=== PATIENT | male | born 1960 | race Caucasian/White ===

== ENCOUNTER → 2016-11-11 | Outpatient (CLI) | payer OTHER ==
[~2016-11-11] MED LIST: 1-ME1LIQ PO; ANTI2TAB PO; MEVA40TA PO; PROT40TA PO; ZOFR4TAB3 PO
[2016-11-11 08:49] LABS: HEMATOCRIT 42.1 % (39.0-51.0); MEAN CELL VOLUME 87.8 FL (80.0-100.0); MEAN CORPUSCULAR HEMOGLOBIN 29.6 PG (27.0-34.0); MEAN CORPUSCULAR HGB CONC 33.7 % (32.0-36.0); PLATELET COUNT 271 TH/MM3 (150-450); RED CELL DISTRIBUTION WIDTH 13.3 % (11.6-17.2); REVIEW FLAG FINAL; WHITE BLOOD COUNT 6.6 TH/MM3 (4.0-11.0)
[2016-11-11 09:18] LABS: ANION GAP 9 MEQ/L (5-15); AST (GOT) 17 U/L (15-37); BICARBONATE 27.2 MEQ/L (21.0-32.0); BLOOD UREA NITROGEN 13 MG/DL (7-18); CHLORIDE 100 MEQ/L (98-107); GLOMERULAR FILTRATION RATE 74 ML/MIN (>89); GLUCOSE,FASTING 91 MG/DL (74-99); POTASSIUM 4.2 MEQ/L (3.5-5.1); SODIUM (NA) 136 MEQ/L (136-145)
[2016-11-11 09:30] LABS: ALKALINE PHOSPHATASE 70 U/L (45-117); ALT (GPT) 30 U/L (12-78); HDL CHOLESTEROL 41.5 MG/DL (40.0-60.0); LDL CHOLESTEROL 93 MG/DL (0-99); TOTAL BILIRUBIN ADULT 0.4 MG/DL (0.2-1.0)
== END ==
LOC: CLAB 08:31
PROVIDERS: ATTEND Family Medicine
DX: R20.2 Paresthesia of skin (principal); E78.00 Pure hypercholesterolemia, unspecified; K21.9 Gastro-esophageal reflux disease without esophagitis; I10 Essential (primary) hypertension; Z12.5 Encounter for screening for malignant neoplasm of prostate
CPT/HCPCS: 36415; 80053; 80061; 84153; 84443; 85027

== ENCOUNTER → 2017-03-20 | Outpatient (CLI) | payer OTHER ==
[2017-03-20 07:48] LABS: HEMATOCRIT 41.4 % (39.0-51.0); MEAN CELL VOLUME 89.5 FL (80.0-100.0); MEAN CORPUSCULAR HEMOGLOBIN 30.5 PG (27.0-34.0); MEAN CORPUSCULAR HGB CONC 34.1 % (32.0-36.0); PLATELET COUNT 266 TH/MM3 (150-450); RED BLOOD COUNT 4.63 MIL/MM3 (4.50-5.90); RED CELL DISTRIBUTION WIDTH 13.4 % (11.6-17.2); REVIEW FLAG FINAL; WHITE BLOOD COUNT 6.9 TH/MM3 (4.0-11.0)
[2017-03-20 08:09] LABS: ANION GAP 8 MEQ/L (5-15); AST (GOT) 15 U/L (15-37); BICARBONATE 25.5 MEQ/L (21.0-32.0); BLOOD UREA NITROGEN 10 MG/DL (7-18); CHLORIDE 101 MEQ/L (98-107); GLOMERULAR FILTRATION RATE 73 ML/MIN (>89); GLUCOSE,FASTING 93 MG/DL (74-99); POTASSIUM 4.1 MEQ/L (3.5-5.1); SODIUM (NA) 134 MEQ/L (136-145)
[2017-03-20 08:10] LABS: ALT (GPT) 25 U/L (12-78)
[2017-03-20 08:20] LABS: ALKALINE PHOSPHATASE 67 U/L (45-117); LDL CHOLESTEROL 79 MG/DL (0-99); TOTAL BILIRUBIN ADULT 0.3 MG/DL (0.2-1.0)
== END ==
LOC: CLAB 07:09
PROVIDERS: ATTEND Family Medicine
DX: R20.2 Paresthesia of skin (principal); E78.00 Pure hypercholesterolemia, unspecified; K21.9 Gastro-esophageal reflux disease without esophagitis; I10 Essential (primary) hypertension
CPT/HCPCS: 36415; 80053; 80061; 84443; 85027

== ENCOUNTER → 2017-09-22 | Outpatient (CLI) | payer OTHER ==
[2017-09-22 08:22] LABS: AUTOMATED NEUTROPHIL # 3.9 TH/MM3 (1.8-7.7); BASOPHIL # 0.1 TH/MM3 (0-0.2); EOSINOPHIL # 0.1 TH/MM3 (0-0.4); HEMATOCRIT 42.5 % (39.0-51.0); HEMOGLOBIN 14.5 GM/DL (13.0-17.0); LYMPH % 32.9 % (9.0-44.0); LYMPHOCYTE # 2.3 TH/MM3 (1.0-4.8); MEAN CELL VOLUME 89.1 FL (80.0-100.0); MEAN CORPUSCULAR HEMOGLOBIN 30.4 PG (27.0-34.0); MEAN CORPUSCULAR HGB CONC 34.1 % (32.0-36.0); MEAN PLATELET VOLUME 8.3 FL (7.0-11.0); MONO % 9.8 % (0.0-8.0); MONOCYTE # 0.7 TH/MM3 (0-0.9); NEUT % 54.3 % (16.0-70.0); PLATELET COUNT 284 TH/MM3 (150-450); RED BLOOD COUNT 4.78 MIL/MM3 (4.50-5.90); RED CELL DISTRIBUTION WIDTH 13.6 % (11.6-17.2); WHITE BLOOD COUNT 7.1 TH/MM3 (4.0-11.0)
[2017-09-22 08:43] LABS: ALBUMIN 4.1 GM/DL (3.4-5.0); AST (GOT) 14 U/L (15-37); BLOOD UREA NITROGEN 12 MG/DL (7-18); CALCIUM 9.2 MG/DL (8.5-10.1); CHLORIDE 101 MEQ/L (98-107); CREATININE 1.06 MG/DL (0.60-1.30); GLOMERULAR FILTRATION RATE 72 ML/MIN (>89); GLUCOSE,FASTING 87 MG/DL (74-99); SODIUM (NA) 135 MEQ/L (136-145)
[2017-09-22 08:44] LABS: CHOLESTEROL 154 MG/DL (120-200); TRIGLYCERIDES 50 MG/DL (42-150)
[2017-09-22 08:55] LABS: ALKALINE PHOSPHATASE 68 U/L (45-117); ALT (GPT) 20 U/L (12-78); CHOLESTEROL/ HDL RATIO 3.71 RATIO; HDL CHOLESTEROL 41.5 MG/DL (40.0-60.0); LDL CHOLESTEROL 103 MG/DL (0-99); TOTAL BILIRUBIN ADULT 0.4 MG/DL (0.2-1.0); TOTAL PROTEIN 7.7 GM/DL (6.4-8.2)
== END ==
LOC: CLAB 07:55
PROVIDERS: ATTEND Family Medicine
DX: E78.5 Hyperlipidemia, unspecified (principal); I10 Essential (primary) hypertension
CPT/HCPCS: 36415; 80053; 80061; 84443; 85025

== ENCOUNTER 2017-10-14 12:22 | Inpatient (IN) | payer OTHER ==
[~2017-10-14] VITALS: Ht 172.7 cm; Wt 115.0 kg
[~2017-10-14 12:22] MED LIST changes: +SODIUM CHLOR 0.9% 1000 ML INJ 1,000 ML IV ONE
[2017-10-14] MEDS ORDERED: IOHEXOL 350 MG/ML 10 ML VIAL (for RAD DIAG) IVCONTRAST ONE (12:23)
--- NOTE | 2017-10-14 12:27 | PD ---
HPI Chief Complaint: Stroke alert Time Seen by Provider: 12:22 Travel History International Travel<30 days: No Contact w/Intl Traveler<30days: No History of Present Illness HPI 57-year-old male patient with history of hypertension, previous TIA, presents to the ER today brought in by coworkers from upstairs, patient is a employee, apparently coworker noticed that he called out her name, and it was the wrong name, was having slurred speech, he states that he has been dizzy and symptoms have been for about an hour. He states that he ate a bun this morning, took Norvasc for his blood pressure this morning. He denies any chest pains, trouble breathing, or other symptoms. He appears somewhat disoriented according to coworker but is able to answer questions appropriately. However, he does seem to have 2 think about answers even to simple questions like his social security number and who the president is. Considering history of TIA, patient states he had similar symptoms with a TIA as well, stroke alert was called for further evaluation and treatment. His blood sugar in the ER is 84. Modifying Factors: None Associated Signs & Symptoms: Disorientation, slurred speech, stroke alert Risk Factors: Previous TIA PFSH Past Medical History Autoimmune Disease: No Cancer: No Cardiovascular Problems: No High Cholesterol: Yes Endocrine: No GERD: Yes Genitourinary: No Hypertension: Yes Immune Disorder: No Musculoskeletal: No Psychiatric: No Reproductive: No Respiratory: No Past Surgical History Eye Surgery: Yes (eye repair cross eye) Social History Alcohol Use: No Tobacco Use: No Substance Use: No Allergies-Medications (Allergen,Severity, Reaction): Coded Allergies: No Known Allergies (Unverified Adverse Reaction, Unknown, 10/14/17) Reported Meds & Prescriptions Reported Meds & Active Scripts Active Reported Norvasc (Amlodipine Besylate) 5 Mg Tab 5 Mg PO DAILY Protonix (Pantoprazole Sodium) 40 Mg Tab 40 Mg PO DAILY Review of Systems ROS Limitations: Altered Mental Status (Mild) Except as stated in HPI: all other systems reviewed are Neg Physical Exam Narrative GENERAL: Well-developed middle-age male patient currently in mild distress. Awake and oriented 3. Slow to answer questions. SKIN: Focused skin assessment warm/dry. HEAD: Atraumatic. Normocephalic. EYES: Pupils equal and round. No scleral icterus. No injection or drainage. ENT: No nasal bleeding or discharge. Mucous membranes pink and moist. NECK: Trachea midline. No JVD. CARDIOVASCULAR: Regular rate and rhythm. No murmur appreciated. RESPIRATORY: No accessory muscle use. Clear to auscultation. Breath sounds equal bilaterally. GASTROINTESTINAL: Abdomen soft, non-tender, nondistended. Hepatic and splenic margins not palpable. MUSCULOSKELETAL: No obvious deformities. No clubbing. No cyanosis. No edema. NEUROLOGICAL: Awake and alert. No obvious cranial nerve deficits. Motor grossly within normal limits. Mildly slurred speech. No pronator drift. Mild aphasia. PSYCHIATRIC: Appropriate mood and affect; insight and judgment normal. Data Data Last Documented VS Vital Signs Date Time Temp Pulse Resp B/P (MAP) Pulse Ox O2 Delivery O2 Flow Rate FiO2 10/14/17 13:04 16 100 Nasal Cannula 2.00 10/14/17 13:03 55 Orders Orders Diet Npo (10/14/17 Lunch) Activity Bed Rest (10/14/17 ) Electrocardiogram (10/14/17 ) I-Stat Profile (10/14/17 12:22) Prothrombin Time / Inr (Pt) (10/14/17 12:22) Act Partial Throm Time (Ptt) (10/14/17 12:22) Complete Blood Count With Diff (10/14/17 12:22) Fibrinogen (10/14/17 12:22) Creatine Kinase (Cpk) (10/14/17 12:22) Troponin I (10/14/17 12:22) Ua Includes Microscopic (10/14/17 12:22) Drug Screen, Random Urine (10/14/17 12:22) Type And Screen (10/14/17 12:22) Ct Brain W/O Iv Contrast(Rout) (10/14/17 ) Chest, Single Ap (10/14/17 ) Cta Brain W Iv Contrast W 3d (10/14/17 12:22) Cta Neck W Iv Contrast W 3d (10/14/17 12:22) Consult Neurology (10/14/17 ) Blood Glucose (10/14/17 12:22) Ecg Monitoring (10/14/17 12:22) Neuro Checks Q2HX12,Q4H (10/14/17 12:22) Nursing Bedside Swallow Assess .ONCE (10/14/17 12:22) Iv Access Insert/Monitor (10/14/17 12:22) NPO (10/14/17 12:22) Oximetry (10/14/17 12:22) Resp Oxygen Nc Stroke (10/14/17 ) Sodium Chlor 0.9% 1000 Ml Inj (Ns 1000 M (10/14/17 12:22) Cath For Specimen (10/14/17 12:22) (Hub Use Only)Inp Phy Cons/Ref (10/14/17 ) Metoclopramide Inj (Reglan Inj) (10/14/17 13:00) Iohexol 350 Inj (Omnipaque 350 Inj) (10/14/17 12:23) Mri Brain W/O Contrast (10/14/17 13:02) Mra Brain W/O Contrast (Cow) (10/14/17 13:02) Mra Carotids W Contrast (10/14/17 13:02) Aspirin Supp (Aspirin Supp) (10/14/17 13:30) Nicardipine Inj (Cardene Inj) (10/14/17 13:30) Admit Order (Ed Use Only) (10/14/17 13:36) Labs Laboratory Tests Test 10/14/17 12:30 White Blood Count 7.2 TH/MM3 Red Blood Count 5.07 MIL/MM3 Hemoglobin 15.2 GM/DL Bedside Hemoglobin 15.6 G/DL Hematocrit 44.5 % Bedside Hematocrit 46.0 % Mean Corpuscular Volume 87.9 FL Mean Corpuscular Hemoglobin 30.0 PG Mean Corpuscular Hemoglobin Concent 34.2 % Red Cell Distribution Width 13.5 % Platelet Count 275 TH/MM3 Mean Platelet Volume 8.3 FL Neutrophils (%) (Auto) 47.2 % Lymphocytes (%) (Auto) 41.9 % Monocytes (%) (Auto) 8.7 % Eosinophils (%) (Auto) 1.2 % Basophils (%) (Auto) 1.0 % Neutrophils # (Auto) 3.4 TH/MM3 Lymphocytes # (Auto) 3.0 TH/MM3 Monocytes # (Auto) 0.6 TH/MM3 Eosinophils # (Auto) 0.1 TH/MM3 Basophils # (Auto) 0.1 TH/MM3 CBC Comment DIFF FINAL Differential Comment Prothrombin Time 10.0 SEC Prothromb Time International Ratio 1.0 RATIO Activated Partial Thromboplast Time 24.7 SEC Fibrinogen 314 mg/dL Bedside Sodium 137 MMOL/L Bedside Potassium 3.8 MMOL/L Bedside Chloride 98 MMOL/L Bedside Blood Urea Nitrogen 9 MG/DL Bedside Creatinine 1.0 MG/DL Bedside Glucose 96 MG/DL Total Creatine Kinase 122 U/L Troponin I LESS THAN 0.02 NG/ML MDM Medical Screen Exam Complete: Yes Emergency Medical Condition: Yes Medical Record Reviewed: Yes Differential Diagnosis CVA versus ICH versus dehydration versus electrolyte abnormalities versus vertigo Narrative Course Case was discussed with Dr. Villa, initial CT was negative. CTA was attempted but the patient started vomiting on CT machine and only a partial scan could be done. And I have discussed this issue with Dr. Villa as well, she wanted us to do an MRI/MRA for further evaluation. She states that I can go ahead and give the patient aspirin NE. At this point also we did not think that this patient will be a TPA candidate especially because his symptoms are so mild. He is completely conversant currently and is barely confused in the ER. He has no focal numbness or weakness. At this point, patient's blood pressure is fairly elevated and I have talked to Dr. Holcomb for admission, but considering the stroke, we will hold off on blood pressure medications right now, will see what the next blood pressure is before deciding to treat. I have discussed findings with patient and he states understanding. Aggregate critical care time was 30 minutes. Time to perform other separately billable procedures was not included in the critical care time. My time did not include minutes spent treating any other patients simultaneously or on activities that did not directly contribute to the patient's treatment. The services I provided to this patient were to treat and/or prevent clinically significant deterioration that could result in: Stroke alert, ICH, I provided critical care services requiring my management, as noted below: Chart data review, documentation time, medication orders and management, vital sign assessments/reviewing monitor data, ordering and reviewing lab tests, ordering and interpreting/reviewing x-rays and diagnostic studies, care of the patient and discussion of the patient with the admitting physicians. Stroke Alert NIHSS NIH Stroke Scale Result: 1 NIHSS Time Completed: 12:20 Thrombolytic Delayed Delay > 60 Mins From Arrival: Diagnostic Evaluation (CTA was not able to be done, vomiting, MRI done), Uncontrolled Hypertension Diagnosis Diagnosis: Primary Impression: Stroke Additional Impression: Severe uncontrolled hypertension Admitting Physician Requests: Admit Rick Inman MD October 14, 2017 12:27
[2017-10-14 12:43] LABS: AUTOMATED NEUTROPHIL # 3.4 TH/MM3 (1.8-7.7); BASOPHIL # 0.1 TH/MM3 (0-0.2); EOSINOPHIL # 0.1 TH/MM3 (0-0.4); EOSINOPHIL % 1.2 % (0.0-4.0); HEMATOCRIT 44.5 % (39.0-51.0); HEMOGLOBIN 15.2 GM/DL (13.0-17.0); LYMPH % 41.9 % (9.0-44.0); MEAN CELL VOLUME 87.9 FL (80.0-100.0); MEAN CORPUSCULAR HGB CONC 34.2 % (32.0-36.0); MEAN PLATELET VOLUME 8.3 FL (7.0-11.0); MONO % 8.7 % (0.0-8.0); MONOCYTE # 0.6 TH/MM3 (0-0.9); NEUT % 47.2 % (16.0-70.0); PLATELET COUNT 275 TH/MM3 (150-450); RED BLOOD COUNT 5.07 MIL/MM3 (4.50-5.90); RED CELL DISTRIBUTION WIDTH 13.5 % (11.6-17.2); WHITE BLOOD COUNT 7.2 TH/MM3 (4.0-11.0)
--- NOTE | 2017-10-14 12:50 | RADRPT ---
EXAM DATE: 10/14/2017 12:39 PM EDT AGE/SEX: 57 years / Male INDICATIONS: Stroke alert, slurred speach CLINICAL DATA: This is the patient's initial encounter. Patient reports that signs and symptoms have been present for 1 day and indicates a pain score of 0/10. MEDICAL/SURGICAL HISTORY: Non-responsive. Non-responsive. RADIATION DOSE: 45.49 CTDI (mGy) COMPARISON: No prior [facility] exams available for comparison. Report was called by Dr. Fany Fiore at 12:46 PM.] TECHNIQUE: CT of the head without contrast. Using automated exposure control and adjustment of the mA and/or kV according to patient size, radiation dose was kept as low as reasonably achievable to ob tain optimal diagnostic quality images. FINDINGS: Cerebrum: The ventricles are normal for age. No evidence of midline shift, mass lesion, hemorrhage o r acute infarction. No extraaxial fluid collections are seen. Posterior Fossa: The cerebellum and brainstem are intact. The 4th ventricle is midline. The cerebe llopontine angle is unremarkable. Extracranial: The visualized portion of the orbits is intact. Minimal mucoperiosteal thickening in t he right maxillary sinus. Skull: The calvaria is intact. No evidence of skull fracture. CONCLUSION: 1. No acute intracranial abnormality. 2. Minimal right maxillary sinus disease. Electronically signed by: Vidal Arambula MD 10/14/2017 12:48 PM EDT
[2017-10-14] MEDS ORDERED: METOCLOPRAMIDE HCL 10 MG/2 ML VIAL IV PUSH ONE (13:00)
[2017-10-14] MEDS ORDERED: PROT40TA PO (13:01)
[2017-10-14] MEDS ORDERED: AMLO5 PO (13:01)
[2017-10-14 13:03] VITALS: BP 215/96; PULSE 55; RESP 18; O2SAT 100
[2017-10-14 13:04] VITALS: RESP 16; O2SAT 100
[2017-10-14 13:12] LABS: TROPONIN I LESS THAN 0.02 NG/ML (0.02-0.05)
[2017-10-14] MEDS ORDERED: ASPIRIN 300 MG SUPP RECTAL ONE (13:30)
[2017-10-14] MEDS ORDERED: niCARdipine INJ 25 MG in SODIUM CHLOR 0.9% 250 ML INJ 250 ML IV ONE (13:30)
--- NOTE | 2017-10-14 13:36 | RADRPT ---
EXAM DATE: 10/14/2017 1:31 PM EDT AGE/SEX: 57 years / Male INDICATIONS: Stroke alert. Shortness of breath, dizziness, and nausea. CLINICAL DATA: This is the patient's initial encounter. Patient reports that signs and symptoms have been present for 1 day and indicates a pain score of 0/10. MEDICAL/SURGICAL HISTORY: None. None. COMPARISON: No prior [place] exams available for comparison. FINDINGS: A single AP view of the chest demonstrates the lungs to be symmetrically aerated without evidence of mass, infiltrate or effusion. The cardiomediastinal contours are unremarkable. Osseous structures a re intact. CONCLUSION: No evidence of acute cardiopulmonary process. Electronically signed by: Cuco Munroe MD 10/14/2017 1:35 PM EDT
[2017-10-14] MEDS: SODIUM CHLOR 0.9% 1000 ML INJ 1,000 ML IV SCH (13:51)
--- NOTE | 2017-10-14 13:59 | HHI.HP ---
HPI Service [facility] Primary Care Physician Unknown Admission Diagnosis Stroke alert Diagnoses: Chief Complaint: Stroke alert Travel History International Travel<30 Days: No Contact w/Intl Traveler <30 Da: No Traveled to Known Affected Are: No History of Present Illness This is a 57-year-old male with history of hypertension, GERD and previous history of TIA. He was brought in to the ED by his coworkers emergently. He is a hospital employee. Reportedly he was disoriented calling his coworker different name and dysarthric. He also reports of dizziness and nausea for about an hour prior to onset of neuro deficits. Denies fever, chills, numbness and focal weakness. In the emergency department, his symptoms continued to improve but developed vomiting and now reports of left-sided headache. His blood pressure was severely elevated systolic over 215 improved to systolic of 120 without intervention. Patient has been compliant with his medical therapy of Norvasc and Protonix. He is not on antiplatelets and statins. Telemetry shows sinus bradycardia in the 50s which is his baseline. EKG showing sinus bradycardia with ST changes in the 3 and aVF. Patient seen with his family. His reports that he has been under a lot of stress complaining of intermittent chest pain last episode a month ago. All other systems reviewed negative Review of Systems Except as stated in HPI: all other systems reviewed are Neg Past Family Social History Past Medical History As previously mentioned Past Surgical History Eye surgery Reported Medications Reported Meds & Active Scripts Active Reported Norvasc (Amlodipine Besylate) 5 Mg Tab 5 Mg PO DAILY Protonix (Pantoprazole Sodium) 40 Mg Tab 40 Mg PO DAILY Allergies: Coded Allergies: No Known Allergies (Unverified Allergy, Unknown, 10/14/17) Family History No CVA Social History He drinks but does not smoke or use illicit drugs. Lives with his Physical Exam Vital Signs Vital Signs Date Time Temp Pulse Resp B/P (MAP) Pulse Ox O2 Delivery O2 Flow Rate FiO2 10/14/17 13:04 16 100 Nasal Cannula 2.00 10/14/17 13:03 55 18 215/96 (135) 100 Nasal Cannula 2.00 Physical Exam GENERAL: This is a well-nourished, well-developed patient, in no apparent distress. SKIN: No rashes, ecchymoses or lesions. Cool and dry. HEAD: Atraumatic. Normocephalic. No temporal or scalp tenderness. EYES: Pupils equal round and reactive. Extraocular motions intact. No scleral icterus. No injection or drainage. ENT: Nose without bleeding, purulent drainage or septal hematoma. Throat without erythema, tonsillar hypertrophy or exudate. Uvula midline. Airway patent. NECK: Trachea midline. No JVD or lymphadenopathy. Supple, nontender, no meningeal signs. CARDIOVASCULAR: Regular rate and rhythm without murmurs, gallops, or rubs. RESPIRATORY: Clear to auscultation. Breath sounds equal bilaterally. No wheezes , rales, or rhonchi. GASTROINTESTINAL: Abdomen soft, non-tender, nondistended. No guarding. MUSCULOSKELETAL: Extremities without clubbing, cyanosis, or edema. No joint tenderness, effusion, or edema noted. No calf tenderness. Negative Homans sign bilaterally. NEUROLOGICAL: Awake and alert. Cranial nerves II through XII intact. Motor and sensory grossly within normal limits. Five out of 5 muscle strength in all muscle groups. Normal speech. Laboratory Laboratory Tests Test 10/14/17 12:30 White Blood Count 7.2 Red Blood Count 5.07 Hemoglobin 15.2 Bedside Hemoglobin 15.6 Hematocrit 44.5 Bedside Hematocrit 46.0 Mean Corpuscular Volume 87.9 Mean Corpuscular Hemoglobin 30.0 Mean Corpuscular Hemoglobin Concent 34.2 Red Cell Distribution Width 13.5 Platelet Count 275 Mean Platelet Volume 8.3 Neutrophils (%) (Auto) 47.2 Lymphocytes (%) (Auto) 41.9 Monocytes (%) (Auto) 8.7 Eosinophils (%) (Auto) 1.2 Basophils (%) (Auto) 1.0 Neutrophils # (Auto) 3.4 Lymphocytes # (Auto) 3.0 Monocytes # (Auto) 0.6 Eosinophils # (Auto) 0.1 Basophils # (Auto) 0.1 CBC Comment DIFF FINAL Differential Comment Prothrombin Time 10.0 Prothromb Time International Ratio 1.0 Activated Partial Thromboplast Time 24.7 Fibrinogen 314 Bedside Sodium 137 Bedside Potassium 3.8 Bedside Chloride 98 Bedside Blood Urea Nitrogen 9 Bedside Creatinine 1.0 Bedside Glucose 96 Total Creatine Kinase 122 Troponin I LESS THAN 0.02 Result Diagram: 10/14/17 1230 Imaging Last Impressions Head Magnetic Resonance Angiography 10/14/17 1302 Signed Impressions: CONCLUSION: Brain MRI 10/14/17 1302 Signed Impressions: CONCLUSION: Head CT 10/14/17 0000 Signed Impressions: CONCLUSION: Chest X-Ray 10/14/17 0000 Signed Impressions: CONCLUSION: Caprini VTE Risk Assessment Caprini VTE Risk Assessment: Mod/High Risk (score >= 2) Caprini Risk Assessment Model Point Value = 1 Point Value = 2 Point Value = 3 Point Value = 5 Age 41-60 Minor surgery BMI > 25 kg/m2 Swollen legs Varicose veins or History of unexplained or recurrent spontaneous Oral contraceptives or hormone replacement Sepsis (< 1 month) Serious lung disease, including pneumonia (< 1 month) Abnormal pulmonary function Acute myocardial infarction Congestive heart failure (< 1 month) History of inflammatory bowel disease Medical patient at bed rest Age 61-74 Arthroscopic surgery Major open surgery (> 45 min) Laparoscopic surgery (> 45 min) Malignancy Confined to bed (> 72 hours) Immobilizing plaster cast Central venous access Age >= 75 History of VTE Family history of VTE Factor V Leiden Prothrombin [id number] Lupus anticoagulant Anticardiolipin antibodies Elevated serum homocysteine Heparin-induced thrombocytopenia Other congenital or acquired thrombophilia Stroke (< 1 month) Elective arthroplasty Hip, pelvis, or leg fracture Acute spinal cord injury (< 1 month) Prophylaxis Regimen Total Risk Factor Score Risk Level Prophylaxis Regimen 0-1 Low Early ambulation 2 Moderate Order ONE of the following: *Sequential Compression Device (SCD) *Heparin 5000 units SQ BID 3-4 Higher Order ONE of the following medications: *Heparin 5000 units SQ TID *Enoxaparin/Lovenox 40 mg SQ daily (WT < 150 kg, CrCl > 30 mL/min) *Enoxaparin/Lovenox 30 mg SQ daily (WT < 150 kg, CrCl > 10-29 mL/min) *Enoxaparin/Lovenox 30 mg SQ BID (WT < 150 kg, CrCl > 30 mL/min) AND/OR *Sequential Compression Device (SCD) 5 or more Highest Order ONE of the following medications: *Heparin 5000 units SQ TID (Preferred with Epidurals) *Enoxaparin/Lovenox 40 mg SQ daily (WT < 150 kg, CrCl > 30 mL/min) *Enoxaparin/Lovenox 30 mg SQ daily (WT < 150 kg, CrCl > 10-29 mL/min) *Enoxaparin/Lovenox 30 mg SQ BID (WT < 150 kg, CrCl > 30 mL/min) AND *Sequential Compression Device (SCD) Assessment and Plan Problem List: (1) Severe uncontrolled hypertension ICD Code: I10 - Essential (primary) hypertension Status: Acute (2) Stroke ICD Code: I63.9 - Cerebral infarction, unspecified Status: Acute Assessment and Plan This is a 57-year-old male with history of hypertension, GERD and previous history of TIA. He was brought in to the emergency room by his coworkers from upstairs. He is a hospital employee. Reportedly he was disoriented calling his coworker different name and dysarthric. He also reports of dizziness and nausea for about an hour prior to onset of neuro deficits. TIA vs CVA. Patient will be admitted for stroke workup which will include MRI and MRA of the brain, carotid sonogram, echocardiogram and monitor patient on telemetry. Consult neurology, PT, OT and ST. Discussed with Dr. Villa, start aspirin per rectum if he does not pass swallowing evaluation. Permissive hypertension start IV hydration. Risk factor modification obtain lipid profile and A1c Severe HTN. Permissive hypertension as previously mentioned. Will treat with as needed Vasotec, labetalol and Cardene drip if BP over 220/120 Anxiety. Will continue to monitor. Antianxiety medications if okay with neurology DVT prophylaxis with SCD. Pharmacological prophylaxis if okay with neurology Discussed Condition With Patient and family. Patient will be admitted monitor in the ICU for close monitoring of his neurological status. High likelihood to require intravenous antihypertensives Clint Holcomb MD October 14, 2017 13:59
[2017-10-14] MEDS ORDERED: ENALAPRILAT 1.25 MG/ML VIAL IV PUSH PRN (14:00)
[2017-10-14] MEDS ORDERED: LACTULOSE SYRUP 20 GM/30 ML CUP PO PRN (14:00)
[2017-10-14] MEDS ORDERED: LABETALOL HCL 100 MG/20 ML VIAL IV PUSH PRN (14:00)
[2017-10-14] MEDS ORDERED: BISACODYL 10 MG SUPP RECTAL PRN (14:00)
[2017-10-14] MEDS ORDERED: niCARdipine INJ 25 MG in SODIUM CHLOR 0.9% 250 ML INJ 250 ML IV PRN (14:00)
[2017-10-14] MEDS ORDERED: SENNOSIDES 8.6 MG TAB PO PRN (14:00)
[2017-10-14] MEDS ORDERED: NALOXONE HCL 0.4 MG/ML AMP IV PUSH PRN (14:00)
[2017-10-14] MEDS ORDERED: ACETAMINOPHEN 325 MG TAB PO PRN ×2 (14:00)
[2017-10-14] MEDS ORDERED: ONDANSETRON HCL 4 MG/2 ML VIAL IVP PRN (14:00)
[2017-10-14] MEDS ORDERED: GLUCAGON 1 MG/ML VIAL OTHER PRN (14:00)
[2017-10-14] MEDS ORDERED: SODIUM CHLORIDE 0.9% FLUSH 10 ML FLUSH IV FLUSH PRN (14:00)
[2017-10-14] MEDS ORDERED: DEXTROSE 50% IN WATER 50 ML VIAL(D50) IV PUSH PRN (14:00)
[2017-10-14] MEDS ORDERED: MAGNESIUM HYDROXIDE SUSP 30 ML CUP PO PRN (14:00)
--- NOTE | 2017-10-14 14:35 | MB ---
cc: Ya Villa MD DATE: 10/14/2017 REASON FOR CONSULTATION: Stroke alert. 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 The dizziness actually started before the slurred speech, an hour prior or so and was brought into the ED as a stroke alert. He has a history of prior TIA possible in 2011, hypertension. His primary care doctor is Dr. Novak. He actually takes his Norvasc in the morning, had breakfast. He was reported to be somewhat confused, slow to respond, slurred. His blood sugar was 84. He was given some medicine for his accelerated hypertension. He went down for a CAT scan that did not show anything acute. CT angio was initiated; however, from the dye he became severely nauseated and threw up. He is now going to go down for an MRI brain and cahto of Stoll MRA. He is feeling better, still has a mild headache, but his speech has improved. He does not have any focal deficits currently. Hence, TPA is not indicated at this point in time. ALLERGIES TO MEDICATIONS: None reported. ACTIVE MEDICATIONS: 1. Loperamide p.r.n. 2. Zofran p.r.n. 3. Lovastatin 40 mg daily. 4. Amlodipine 10 mg. 5. Protonix 40 mg. PHYSICAL EXAMINATION: VITAL SIGNS: Temperature not checked, but the pulse is in the low 50s, respiratory rate 16; blood pressure initially was 215/96, now down to in the 120 systolic range. NECK: Supple. HEART: Regular. NEUROLOGIC: Awake and alert, fluent, oriented. Pupils reactive. Visual rocha full. Face is symmetrical. Tongue midline. Motor: There is no drift or leg lag. Strength is symmetrical. Toes: Left is downgoing, the right is neutral. DTRs are 1+. Sensory is normal. Cerebellar testing was normal. Gait is withheld. DIAGNOSTIC STUDIES: CBC normal. Coag panel normal. Chemistries: Chloride 98. Troponin less than 0.02. Chest x-ray was also performed without any acute process. IMPRESSION: 1. A 57-year-old man with what appears to be transient ischemic attack symptoms. 2. Hypertension. 3. Dizziness/vertigo may be due to #1. PLAN: Recommend full stroke workup. He will have his MRI. He just went down for the MRA. We will do a carotid ultrasound, a 2-D echo, get a lipid panel and start him on a baby aspirin. Permissible hypertension. At this point, I would not lower his systolic more than 140 systolic range; however, if his blood pressure becomes severely increased, then nicardipine drip would be fine. He can stay in the ICU overnight, just for close monitoring. Continue current care. Further recommendations will be made accordingly. If he is stable tomorrow and images are unremarkable, certainly get him out of bed, have PT assess him. MD MELVIN Marsh/AMBER , 02:02 PM , 02:33 PM
--- NOTE | 2017-10-14 14:36 | RADRPT ---
EXAM DATE: 10/14/2017 2:30 PM EDT AGE/SEX: 57 years / Male INDICATIONS: Stroke alert. CLINICAL DATA: This is the patient's initial encounter. Patient reports that signs and symptoms have been present for 1 day and indicates a pain score of 0/10. MEDICAL/SURGICAL HISTORY: Hypertension. . eye surgery as child. COMPARISON: [facility] [place]/O CONTRAST, 08/19/2011. . TECHNIQUE: 3D [id number] MRA was performed. Source images, multiplanar STS MIP, and 3D volum e MIP reconstructions were reviewed. FINDINGS: There is excellent visualization of the major intracranial arteries out to the second-order branch ve ssels. There is no evidence for aneurysm, vessel truncation or stenosis, and no evidence for vascula r malformation. CONCLUSION: Negative exam. Intracranial vessels are all patent. No aneurysmal disease. Electronically signed by: Kg Todd MD 10/14/2017 2:35 PM EDT
[2017-10-14 14:37] LABS: BACTERIA, URINE RARE /hpf; BILIRUBIN, URINE NEG (NEG); BLOOD, URINE NEG (NEG); GLUCOSE,URINE NEG (NEG); KETONE, URINE NEG (NEG); NITRITE,URINE NEG (NEG); PH, URINE 7.5 (5.0-8.5); URINE COLOR LIGHT-YELLOW (YELLW/STRAW); URINE LEUKOCYTE ESTERASE NEG (NEG)
--- NOTE | 2017-10-14 14:41 | RADRPT ---
EXAM DATE: 10/14/2017 2:32 PM EDT AGE/SEX: 57 years / Male INDICATIONS: Stroke alert. CLINICAL DATA: This is the patient's initial encounter. Patient reports that signs and symptoms have been present for 1 day and indicates a pain score of 0/10. MEDICAL/SURGICAL HISTORY: Hypertension. . eye surgery as child. COMPARISON: No prior [facility] exams available for comparison. TECHNIQUE: Multiplanar, multisequence examination of the brain was performed without contrast. FINDINGS: Cerebrum: The ventricles are normal for age. No evidence of midline shift, mass lesion, hemorrhage or acute infarction. No extraaxial fluid collections are seen. The pituitary gland and suprasellar cistern are normal in configuration. White Matter: No significant signal abnormalities are seen in the white matter. Posterior Fossa: The cerebellum and brainstem are intact. The 4th ventricle is midline. The cerebel lopontine angle is unremarkable. The cerebellar tonsils are normal in position. Diffusion Imaging: No focal areas of restricted diffusion are seen. No evidence of acute infarction . Extracranial: The visualized portions of the orbits and paranasal sinuses are unremarkable. CONCLUSION: Negative exam Electronically signed by: Kg Todd MD 10/14/2017 2:40 PM EDT
[2017-10-14 15:00] VITALS: BP 152/86; PULSE 5; PULSE 53; RESP 25; TEMP 98.2; O2SAT 99
[2017-10-14] MEDS ORDERED: FLUMAZENIL 0.5 MG/5 ML VIAL IV PUSH PRN (15:00)
[2017-10-14] MEDS ORDERED: ASPIRIN 325 MG TAB PO ONE (15:30)
[2017-10-14] MEDS ORDERED: GADODIAMIDE PF 287 MG/ML 20 ML VIAL (for RAD MRI) IVCONTRAST ONE (15:51)
--- NOTE | 2017-10-14 15:53 | RADRPT ---
EXAM DATE: 10/14/2017 3:47 PM EDT AGE/SEX: 57 years / Male INDICATIONS: Stroke. CLINICAL DATA: This is the patient's initial encounter. Patient reports that signs and symptoms have been present for 1 day and indicates a pain score of 0/10. MEDICAL/SURGICAL HISTORY: Hypertension. Hypercholesterolemia. . Eye surgery as a child, urethr a dilitation [place] [facility] [place]. . TECHNIQUE: 20 ml Omniscan (gadodiamide) contrast infused MRA (single exam dose) of the extracranial circulation was performed using a neurovascular coil. Postprocessing was performed, including rotat ing sub-volume maximum intensity projections of each carotid artery, rotating full-volume maximum int ensity projections of both carotid arteries, sagittal and coronal sliding thin-slab reformations of e ach carotid artery, and left oblique sliding thin-slab reformation through the aortic arch to include the origin of the arch branch vessels. FINDINGS: Aortic Arch : There is a three-vessel origin of the great vessels from the aorta. No evidence of o stial narrowing. Right Carotid : The common carotid artery is intact. The carotid bulb has a normal configuration wi thout ulceration or narrowing. The internal carotid artery lumen is smooth without stenosis. The ex ternal carotid artery is intact. Left Carotid : The common carotid artery is intact. The carotid bulb has a normal configuration wit hout ulceration or narrowing. The internal carotid artery lumen is smooth without stenosis. The ext ernal carotid artery is intact. Vertebrals : The vertebral arteries have a symmetric diameter. No stenotic lesions are seen. No significant changes compared to 2011. CONCLUSION: 1. Unremarkable and stable MRA of the carotids compared to the examination of 2011. Percent stenosis is calculated using the diameter of the stenotic region over the diameter of the nor mal distal internal carotid artery Electronically signed by: Navdeep Harris MD 10/14/2017 3:52 [facility]
[2017-10-14 16:00] VITALS: BP 139/85; PULSE 53; RESP 25; TEMP 98.2; O2SAT 99
[2017-10-14] MEDS: INSULIN ASPART SUPPLEMENTAL SCALE SQ SCH ×2 (17:49→20:58)
[2017-10-14 19:13] LABS: TROPONIN I LESS THAN 0.02 NG/ML (0.02-0.05)
[2017-10-14 20:00] VITALS: BP 141/97; PULSE 56; RESP 21; TEMP 98.4; O2SAT 96
[2017-10-14] MEDS: SODIUM CHLORIDE 0.9% FLUSH 10 ML FLUSH IV FLUSH SCH (20:57)
[2017-10-14] MEDS: DOCUSATE SODIUM 50 MG/SENNA 8.6 MG TAB PO SCH (20:57)
[2017-10-14 22:00] VITALS: PULSE 49
--- NOTE | 2017-10-14 23:52 | RADRPT ---
EXAM DATE: 10/14/2017 11:11 PM EDT AGE/SEX: 57 years / Male INDICATIONS: Sudden onset of dizziness, slurred speech, and left sided headache. CLINICAL DATA: This is the patient's initial encounter. Patient reports that signs and symptoms have been present for 1 day and indicates a pain score of 0/10. MEDICAL/SURGICAL HISTORY: Transient ischemic attack. Hypertension. Gastroesophageal reflux di sease. . Eye surgery. COMPARISON: [facility] – [place], CAROTID ARTERIES, 08/19/2011. . No external comparison. VELOCITY PARAMETERS: ICA/CCA Ratio: Right 1.20 , Left 0.87 ICA: Right 52 cm/sec, Left 51 cm/sec CCA: Right 43 cm/sec, Left 58 cm/sec ECA: Right 61 cm/sec, Left 70 cm/sec Vertebral: Right 42 cm/sec antegrade, Left 32 cm/sec antergrade FINDINGS: Right Carotid: No significant stenosis is visualized. Mild plaque is present. The waveforms are with in normal limits. Left Carotid: No significant stenosis is visualized. Mild plaque is present. The waveforms are withi n normal limits. Other: None. CONCLUSION: 1. Right Internal Carotid Artery: No plaque with no stenosis. 2. Left Internal Carotid Artery: Mild plaque with no stenosis. Electronically signed by: Christiano Ty MD 10/14/2017 11:50 PM EDT
[2017-10-15] VITALS (8 sets, daily range): BP systolic 114–174; BP diastolic 60–91; PULSE 45–63; RESP 15–24; TEMP 97.5–98.4; O2SAT 95–98
[2017-10-15 01:01] LABS: TROPONIN I LESS THAN 0.02 NG/ML (0.02-0.05)
[2017-10-15] MEDS: SODIUM CHLOR 0.9% 1000 ML INJ 1,000 ML IV SCH (04:30)
[2017-10-15 06:50] LABS: CHOLESTEROL 146 MG/DL (120-200); TRIGLYCERIDES 46 MG/DL (42-150)
[2017-10-15 06:52] LABS: CHOLESTEROL/ HDL RATIO 3.73 RATIO; HDL CHOLESTEROL 39.1 MG/DL (40.0-60.0); LDL CHOLESTEROL 98 MG/DL (0-99)
[2017-10-15] MEDS: INSULIN ASPART SUPPLEMENTAL SCALE SQ SCH ×2 (07:50→12:00)
[2017-10-15] MEDS: SODIUM CHLORIDE 0.9% FLUSH 10 ML FLUSH IV FLUSH SCH ×2 (08:09→21:12)
[2017-10-15] MEDS: DOCUSATE SODIUM 50 MG/SENNA 8.6 MG TAB PO SCH ×2 (09:00→21:00)
[2017-10-15] MEDS: FOLIC ACID 1 MG TAB PO SCH (09:27)
[2017-10-15] MEDS: THIAMINE HCL 100 MG TAB PO SCH (09:27)
[2017-10-15] MEDS: MULTIVITAMINS/MINERALS THERAPEUTIC TAB PO SCH (09:27)
[2017-10-15] MEDS: ASPIRIN 81 MG CHEW TAB PO SCH (09:28)
--- NOTE | 2017-10-15 10:06 | HHI.PR ---
Subjective Remarks Mr. dani goodwin is feeling much better today. No longer having any symptoms of expressive aphasia. No numbness or weakness. Objective Vitals Vital Signs Date Time Temp Pulse Resp B/P (MAP) Pulse Ox O2 Delivery O2 Flow Rate FiO2 10/15/17 09:04 98 10/15/17 04:00 97.7 45 15 114/60 (78) 96 10/15/17 00:00 46 10/15/17 00:00 97.7 46 24 137/76 (96) 95 10/14/17 22:00 49 10/14/17 20:00 98.4 56 21 141/97 (112) 96 10/14/17 19:00 96 Room Air 10/14/17 16:00 98.2 53 25 139/85 (103) 99 10/14/17 15:00 5 10/14/17 15:00 98.2 53 25 152/86 (108) 99 10/14/17 15:00 99 Nasal Cannula 2.00 10/14/17 13:04 16 100 Nasal Cannula 2.00 10/14/17 13:03 55 18 215/96 (135) 100 Nasal Cannula 2.00 I/O 10/14/17 10/14/17 10/14/17 10/15/17 10/15/17 10/15/17 07:00 15:00 23:00 07:00 15:00 23:00 Intake Total 280 ml 1720 ml Output Total 1300 ml 2800 ml Balance -1020 ml -1080 ml Intake Oral 280 ml 720 ml IV Total 1000 ml Output Urine Total 1300 ml 2800 ml # Voids 2 # Bowel Movements 1 Result Diagram: 10/14/17 1230 Objective Remarks GENERAL: This is a well-nourished, well-developed patient, in no apparent distress. CARDIOVASCULAR: Normal rate and regular rhythm without murmurs, gallops, or rubs. RESPIRATORY: Good respiratory efforts. Breath sounds equal and clear to auscultation bilaterally. GASTROINTESTINAL: Abdomen soft, non-tender, non-distended. Normal active bowel sounds MUSCULOSKELETAL: Extremities without cyanosis, or edema. NEURO: Alert & Oriented x4 to person, place, time, situation. Moves all ext x4 PSYCH: Appropriate mood and affect. A/P Problem List: (1) Severe uncontrolled hypertension ICD Code: I10 - Essential (primary) hypertension Status: Acute (2) Hypertensive emergency ICD Code: I16.1 - Hypertensive emergency (3) Hypertensive encephalopathy ICD Code: I67.4 - Hypertensive encephalopathy Assessment and Plan 57-year-old male who presented as a stroke alert. All of his imaging studies have been negative. TIA, ?Hypertensive encephalopathy: Blood pressure on presentation was 215/96. Symptoms quickly resolved. Concern this is related to uncontrolled hypertension. Patient has been under more than usual levels of stress. Patient stated he had a similar episode in the past that resolved on its own. Seizure less likely. - Appreciate neurology following. Will continue baby aspirin. -Brain MRI, head and neck MRA, carotid ultrasound, all negative. 2D echocardiogram is pending. EEG to rule out seizure activities. - Will start lowering his blood pressure. Resume his home dose amlodipine. Monitor blood pressure and adjust as needed. - PT Accelerated hypertension: - Resume his home dose amlodipine. Monitor blood pressure and adjust as needed. Vasotec as needed. -He does not normally check his blood pressure. Advised the patient he will need a blood pressure log to help his PCP, Dr. Novak titrate antihypertensives. Anxiety: Situational secondary to increased stress at work. - Briefly provide emotional support and some coping techniques. Patient will benefit from outpatient counseling to help manage stress. DVT prophylaxis with SCD. Patient is ambulatory. Discharge Planning Transfer out of the ICU and monitor overnight. Probable discharge tomorrow morning. Ana Veliz MD October 15, 2017 10:06
[2017-10-15] MEDS: amLODIPine BESYLATE 5 MG TAB PO SCH (10:13)
[2017-10-15] MEDS: PANTOPRAZOLE SOD 40 MG DELAYED RELEASE TAB PO SCH (10:18)
--- NOTE | 2017-10-15 16:08 | HHI.PR ---
Subjective Remarks doing well at baseline.No headache no confusion no weakness no speech issues. Objective Vital Signs Date Time Temp Pulse Resp B/P (MAP) Pulse Ox O2 Delivery O2 Flow Rate FiO2 10/15/17 13:57 98.4 51 18 162/80 (107) 97 10/15/17 09:04 98 10/15/17 08:00 97.5 49 18 174/91 (118) 10/15/17 07:00 Room Air 10/15/17 04:00 97.7 45 15 114/60 (78) 96 10/15/17 00:00 46 10/15/17 00:00 97.7 46 24 137/76 (96) 95 10/14/17 22:00 49 10/14/17 20:00 98.4 56 21 141/97 (112) 96 10/14/17 19:00 96 Room Air I/O 10/14/17 10/14/17 10/14/17 10/15/17 10/15/17 10/15/17 07:00 15:00 23:00 07:00 15:00 23:00 Intake Total 280 ml 1720 ml Output Total 1300 ml 2800 ml Balance -1020 ml -1080 ml Intake Oral 280 ml 720 ml IV Total 1000 ml Output Urine Total 1300 ml 2800 ml # Voids 2 # Bowel Movements 1 Result Diagram: 10/14/17 1230 Imaging reviewed all neg Objective Remarks awake alert oriented fluent perrla motor normal dtrs 2+ gait intact Assessment and Plan Assessment and Plan tia htn doubt sz -asa 81mg qd -control bp can increase amlodipine -outpt event monitor and or loop echo inpt or out pt ok. dc in am if stable and bp controlled. eeg done result pending. Ya Villa MD October 15, 2017 16:08
[2017-10-15 17:20] LABS: HEMOGLOBIN A1C 5.5 % (4.3-6.0)
[2017-10-16 00:50] VITALS: BP 113/56; PULSE 51; RESP 16; TEMP 98.2; O2SAT 98
[2017-10-16 06:20] VITALS: BP 120/62; PULSE 60; RESP 16; TEMP 98.3; O2SAT 99
[2017-10-16 08:00] VITALS: BP 141/70; PULSE 53; RESP 19; TEMP 98.4; O2SAT 97
--- NOTE | 2017-10-16 08:24 | EKG ---
Date Performed: 10/14/2017 Time Performed: 16:23:48 PTAGE: 57 years EKG: Sinus bradycardia. Inferior T wave changes are nonspecific Borderline ECG NO PREVIOUS TRACING DOCTOR: Tami Munoz Interpretating Date/Time 10/16/2017 08:16:53
--- NOTE | 2017-10-16 08:29 | EKG ---
Date Performed: 10/14/2017 Time Performed: 13:12:54 PTAGE: 57 years EKG: SINUS BRADYCARDIA BORDERLINE ECG NO PREVIOUS TRACING DOCTOR: Tami Munoz Interpretating Date/Time 10/16/2017 08:18:52
[2017-10-16] MEDS: SODIUM CHLORIDE 0.9% FLUSH 10 ML FLUSH IV FLUSH SCH (09:00)
[2017-10-16] MEDS: FOLIC ACID 1 MG TAB PO SCH (09:00)
[2017-10-16] MEDS: MULTIVITAMINS/MINERALS THERAPEUTIC TAB PO SCH (09:00)
[2017-10-16] MEDS: THIAMINE HCL 100 MG TAB PO SCH (09:00)
[2017-10-16] MEDS: ASPIRIN 81 MG CHEW TAB PO SCH (09:13)
[2017-10-16] MEDS: amLODIPine BESYLATE 5 MG TAB PO SCH (09:13)
[2017-10-16] MEDS: PANTOPRAZOLE SOD 40 MG DELAYED RELEASE TAB PO SCH (09:13)
[2017-10-16 09:54] VITALS: O2SAT 97
--- NOTE | 2017-10-16 10:26 | MG ---
cc: Glen Ross MD EEG NUMBER: [id number] HISTORY: A 57-year-old man with confusion. MEDICATIONS: Aspirin. DESCRIPTION OF RECORD: A symmetric, 8 Hz, 50 microvolt posterior rhythm is seen. The recording overall is synchronous and symmetric. No hemisphere asymmetries are noted. No epileptiform or seizure activity is seen. EKG artifact is noted. Photic stimulation is performed without significant posterior driving. IMPRESSION: Normal awake EEG. No evidence for focal or diffuse abnormality. No hemisphere asymmetries were noted. MD CLARITA Davies/EVAN , 10:12 AM , 10:25 AM
[2017-10-16] MEDS ORDERED: AMLO10TA2 PO (11:21)
--- NOTE | 2017-10-16 11:21 | HHI.DCPOC ---
Discharge Care Plan Diagnosis: (1) TIA (transient ischemic attack) (2) Hypertensive encephalopathy (3) Hypertensive emergency Goals to Promote Your Health * To prevent worsening of your condition and complications * To maintain your health at the optimal level Directions to Meet Your Goals Take your medications as prescribed Follow your dietary instruction Follow activity as directed Keep your appointments as scheduled Take your immunizations and boosters as scheduled If your symptoms worsen call your PCP, if no PCP go to Urgent Care Center or Emergency Room Smoking is Dangerous to Your Health. Avoid second hand smoke Call the 24-hour hour crisis hotline for domestic abuse at Ana Veliz MD October 16, 2017 11:21
--- NOTE | 2017-10-16 11:27 | HHI.DS ---
Discharge Summary Admission Date October 14, 2017 at 13:38 Discharge Date: October 16, 2017 Admitting Diagnosis Stroke alert (1) Severe uncontrolled hypertension ICD Code: I10 - Essential (primary) hypertension Status: Acute (2) Hypertensive emergency ICD Code: I16.1 - Hypertensive emergency (3) Hypertensive encephalopathy ICD Code: I67.4 - Hypertensive encephalopathy Procedures None Brief History - From Admission HPI from the admitting physician. This is a 57-year-old male with history of hypertension, GERD and previous history of TIA. He was brought in to the ED by his coworkers emergently. He is a hospital employee. Reportedly he was disoriented calling his coworker different name and dysarthric. He also reports of dizziness and nausea for about an hour prior to onset of neuro deficits. Denies fever, chills, numbness and focal weakness. In the emergency department, his symptoms continued to improve but developed vomiting and now reports of left-sided headache. His blood pressure was severely elevated systolic over 215 improved to systolic of 120 without intervention. Patient has been compliant with his medical therapy of Norvasc and Protonix. He is not on antiplatelets and statins. Telemetry shows sinus bradycardia in the 50s which is his baseline. EKG showing sinus bradycardia with ST changes in the 3 and aVF. Patient seen with his family. His reports that he has been under a lot of stress complaining of intermittent chest pain last episode a month ago. All other systems reviewed negative CBC/BMP: 10/14/17 1230 Significant Findings Laboratory Tests Test 10/14/17 12:30 10/14/17 14:20 10/14/17 18:20 10/15/17 00:00 Monocytes (%) (Auto) 8.7 % (0.0-8.0) Bedside Chloride 98 MMOL/L (102-111) Troponin I LESS THAN 0.02 NG/ML LESS THAN 0.02 NG/ML LESS THAN 0.02 NG/ML Urine Bacteria RARE /hpf (NONE) Test 10/15/17 06:01 10/15/17 18:02 HDL Cholesterol 39.1 MG/DL (40.0-60.0) Imaging Last Impressions Head Magnetic Resonance Angiography 10/14/17 1302 Signed Impressions: CONCLUSION: Negative exam. Intracranial vessels are all patent. No aneurysmal disease. Brain MRI 10/14/17 1302 Signed Impressions: CONCLUSION: Negative exam Neck Magnetic Resonance Angiography 10/14/17 0000 Signed Impressions: CONCLUSION: 1. Unremarkable and stable MRA of the carotids compared to the examination of 2011. Percent stenosis is calculated using the diameter of the stenotic region over t he diameter of the normal distal internal carotid artery Head CT 10/14/17 0000 Signed Impressions: CONCLUSION: 1. No acute intracranial abnormality. 2. Minimal right maxillary sinus disease. Chest X-Ray 10/14/17 0000 Signed Impressions: CONCLUSION: No evidence of acute cardiopulmonary process. Carotid Artery Ultrasound 10/14/17 0000 Signed Impressions: CONCLUSION: 1. Right Internal Carotid Artery: No plaque with no stenosis. 2. Left Internal Carotid Artery: Mild plaque with no stenosis. PE at Discharge GENERAL: This is a well-nourished, well-developed patient, in no apparent distress. CARDIOVASCULAR: Normal rate and regular rhythm without murmurs, gallops, or rubs. RESPIRATORY: Good respiratory efforts. Breath sounds equal and clear to auscultation bilaterally. GASTROINTESTINAL: Abdomen soft, non-tender, non-distended. Normal active bowel sounds MUSCULOSKELETAL: Extremities without cyanosis, or edema. NEURO: Alert & Oriented x4 to person, place, time, situation. Moves all ext x4 PSYCH: Appropriate mood and affect. Pt update on day of discharge Patient reports he is feeling great. No new neuro symptoms. We discussed dc planning at length. All test negative but BP noted to be high during the day, not well controlled. Hospital Course 57-year-old male who presented as a stroke alert. All of his imaging studies have been negative. TIA, ?Hypertensive encephalopathy: Blood pressure on presentation was 215/96. Symptoms quickly resolved. Concern this is related to uncontrolled hypertension. Patient has been under more than usual levels of stress. Patient stated he had a similar episode in the past that resolved on its own. Seizure less likely. Based on his blood pressure trend, it appears during the day his blood pressure gets pretty high especially with activity as noted by PT. Patient was followed by neurology. He had an extensive workup including brain MRI, head and neck MRA, carotid ultrasound, all negative. EEG negative for seizure activities. I increased his lisinopril to 10 mg daily. He was advised to keep a blood pressure log and follow-up with his PCP. In the future, consideration may be given to a loop recorder to ensure he is not having arrhythmias. He does have bradycardia in the 50s but is asymptomatic from that. Patient advised to continue with baby aspirin. Accelerated hypertension: - Resume his home dose amlodipine. Monitor blood pressure and adjust as needed. Vasotec as needed. -He does not normally check his blood pressure. Advised the patient he will need a blood pressure log to help his PCP, Dr. Novak to titrate antihypertensives. Anxiety: Situational secondary to increased stress at work. - Briefly provide emotional support and some coping techniques. Patient will benefit from outpatient counseling to help manage stress. Pt Condition on Discharge: Good Discharge Disposition: Discharge Home Discharge Time: <= 30 minutes Discharge Instructions DIET: Follow Instructions for: Heart Healthy Diet Activities you can perform: Regular-No Restrictions Follow up Referrals: PCP Follow-up - 2 Weeks Changed Medications: Amlodipine (Amlodipine) 10 Mg Tab 10 MG PO DAILY for Blood Pressure Management, #30 TAB 0 Refills (Changed from: Amlodipine (Norvasc) 5 Mg Tab 5 Mg PO DAILY Blood Pressure Management #30 TAB Ref 0) Continued Medications: Pantoprazole (Protonix) 40 Mg Tab 40 MG PO DAILY for Reflux, #30 TAB 0 Refills Ana Veliz MD October 16, 2017 11:27
== END 2017-10-16 12:20 | disposition home or self-care (01) | DRG 305 ==
LOC: NEPE 12:22 → NEDA 13:38 → N03A 14:40 → N05B 10-15 13:45
PROVIDERS: ADMIT Family Medicine; ATTEND Family Medicine
DX: I16.1 Hypertensive emergency (principal); I67.4 Hypertensive encephalopathy; F41.9 Anxiety disorder, unspecified; K21.9 Gastro-esophageal reflux disease without esophagitis; Z86.73 Personal history of transient ischemic attack (TIA), and cerebral infarction without residual deficits
CPT/HCPCS: 70450; 70544; 70548; 70551; 71045; 80048; 80061; 80307; 81001; 82550; 82948; 83036; 84484; 85025; 85384; 85610; 85730; 86850; 86900; 86901; 93005; 93880; 94150; 95819; 96361; 96374; A9579; J2765; J7030; Q9967